=== PATIENT | female | born 1975 ===

== ENCOUNTER 2019-01-02 13:00 | Emergency (ER) | payer MEDICAID ==
--- NOTE | 2019-01-02 14:06 | RAD ---
Date of service: 01/02/2019 HISTORY: left sided cp COMPARISON: None available. TECHNIQUE: Chest one view . FINDINGS: LUNGS: No focal consolidation is seen. PLEURA: No pleural effusion is identified. CARDIOVASCULAR: Heart size is within normal limits. No atherosclerotic calcification present. OSSEOUS STRUCTURES: No acute fracture identified. VISUALIZED UPPER ABDOMEN: Unremarkable. OTHER FINDINGS: None. IMPRESSION: No acute cardiopulmonary process seen.
--- NOTE | 2019-01-02 14:17 | C.PDOC ---
History Of Present Illness 43 year old female presents to the ED for evaluation of chest pain that has been intermittent since August 2018. Patient describes her chest pain as sharp, radiating to her left arm and neck and states it is associated with palpita tions. Patient has previously been evaluated in multiple ERs and has undergone bloodwork and CXR. Patient has been told in the past that her symptoms are likely caused by muscle spasms. Patient states she recently traveled from [place], and denies recent surgeries or control use. Patient denies fever, chills, cough, shortness of breath, abdominal pain and rash. Patient denies history of DVT or PE in her family. Time Seen by Provider: 01/02/19 13:07 Chief Complaint (Nursing): Chest Pain History Per: Patient History/Exam Limitations: no limitations Onset/Duration Of Symptoms: Intermittent Episodes (months ) Current Symptoms Are (Timing): Still Present Quality: Sharp, "Pain" Additional History Per: Patient Past Medical History Reviewed: Historical Data, Nursing Documentation, Vital Signs Vital Signs: Last Vital Signs Temp 98.7 F 01/02/19 13:18 Pulse 113 H 01/02/19 13:18 Resp 18 01/02/19 13:18 BP 117/75 01/02/19 13:18 Pulse Ox 99 01/02/19 13:18 - Medical History PMH: No Chronic Diseases Denies: Chronic Kidney Disease Surgical History: No Surg Hx - [facility] Procedures EXTRACTION OF ABDOMEN SKIN, EXTERNAL APPROACH (05/31/16) INJECT/INFUSE NEC (08/18/14) TRANSFER ABDOMEN SKIN, EXTERNAL APPROACH (05/31/16) Family History: States: Unknown Family Hx - Social History Hx Alcohol Use: No Hx Substance Use: No - Immunization History Hx Tetanus Toxoid Vaccination: No Hx Influenza Vaccination: No Hx Pneumococcal Vaccination: No Review Of Systems Constitutional: Negative for: Fever, Chills Cardiovascular: Positive for: Chest Pain Respiratory: Negative for: Cough Gastrointestinal: Negative for: Abdominal Pain Musculoskeletal: Positive for: Neck Pain, Arm Pain (left) Skin: Negative for: Rash Physical Exam - Physical Exam Appears: Non-toxic, No Acute Distress Skin: Normal Color, Warm, Dry Head: Atraumatic, Normacephalic Eye(s): bilateral: Normal Inspection Oral Mucosa: Moist Neck: Supple Chest: Symmetrical, No Deformity, Tenderness (reproducible, to left chest wall) Cardiovascular: Rhythm Regular, No Murmur Respiratory: Normal Breath Sounds, No Rales, No Rhonchi, No Wheezing Extremity: Normal ROM, Capillary Refill (less than 2 seconds ) Neurological/Psych: Oriented x3, Normal Speech, Normal Cognition ED Course And Treatment - Laboratory Results Result Diagrams: 01/02/19 14:31 01/02/19 14:31 ECG: Interpreted By Me, Viewed By Me ECG Rhythm: Sinus Tachycardia Interpretation Of ECG: Sinus Tachycardia at rate 102bpm. Right axis deviation. No acute ST/T wave changes. Rate From EC O2 Sat by Pulse Oximetry: 99 (on RA) Pulse Ox Interpretation: Normal - Other Rad CXR X-Ray: Viewed By Me, Read By Radiologist Interpretation: Accession No. : [id number]. Patient Name / ID : GLEN CHILD / [id number]. Exam Date : 01/02/2019 13:46:17 ( Approved ). Study Comment : Sex / Age : F / 43Y. Creator : Randall Ponce MD. Dictator : Randall Ponce MD. Wire Setter : Production Control Manager : Randall Ponce MD. Approver2 : Report Date : 01/02/2019 14:02:47. My Comment : . Date of service: 01/02/2019. HISTORY: left sided cp. COMPARISON: None available. TECHNIQUE: Chest one view . FINDINGS: LUNGS: No focal consolidation is seen. PLEURA: No pleural effusion is identified. CARDIOVASCULAR: Heart size is within normal limits. No atherosclerotic calcification present. OSSEOUS STRUCTURES: No acute fracture identified. VISUALIZED UPPER ABDOMEN: Unremarkable. OTHER FINDINGS: None. IMPRESSION: No acute cardiopulmonary process seen. Disposition Counseled Patient/Family Regarding: Diagnosis, Need For Followup, Rx Given - Disposition Referrals: Shaik Geller MD [Staff Provider] - Disposition: HOME/ ROUTINE Disposition Time: 16:30 Condition: STABLE Additional Instructions: FOLLOW UP WITH YOUR DOCTOR IN 1-2 DAYS USE MEDICATIONS NEEDED RETURN TO ER IF SYMPTOMS WORSEN Prescriptions: Cyclobenzaprine [Flexeril] 10 mg PO BID PRN #15 tab PRN Reason: Muscle Spasm Naproxen 375 mg PO BID PRN #20 tablet PRN Reason: pain Instructions: Costochondritis (DC) Forms: [employer] (Thai) Print Language: CHINESE - Clinical Impression Clinical Impression: Left-sided chest wall pain - Scribe Statement The provider has reviewed the documentation as recorded by the Scribe (Kate Ponce) Provider Attestation: All medical record entries made by the Scribe were at my direction and personally dictated by me. I have reviewed the chart and agree that the record accurately reflects my personal performance of the history, physical exam, medical decision making, and the department course for this patient. I have also personally directed, reviewed, and agree with the discharge instructions and disposition.
[2019-01-02 14:37] LABS: BASO # 0.1 K/uL (0.0-0.2); BASO % 0.7 % (0.0-2.0); EOS # 0.1 K/uL (0.0-0.7); EOS % 0.8 % (0.0-4.0); HEMOGLOBIN 13.3 g/dL (11.0-16.0); LYMPH # 1.5 K/uL (1.0-4.3); MEAN CELL VOLUME 93.4 fL (81.0-99.0); MEAN CORPUSCULAR HEMOGLOBIN 31.5 pg (27.0-31.0); MEAN CORPUSCULAR HGB CONC 33.8 g/dL (33.0-37.0); MEAN PLATELET VOLUME 8.3 fL (7.2-11.7); MONO # 0.4 K/uL (0.0-0.8); MONO % 5.4 % (0.0-10.0); NEUT % 74.1 % (50.0-75.0); NRBC % 0.1 % (0.0-2.0); RBC 4.23 Mil/uL (3.80-5.20); WHITE BLOOD COUNT 8.1 K/uL (4.8-10.8)
[2019-01-02 14:44] LABS: INR 1.1; PROTHROMBIN TIME 12.1 SECONDS (9.7-12.2)
[2019-01-02 14:47] LABS: D DIMER < 200 ng/mlDDU (0-243)
[2019-01-02 14:52] LABS: ALB/GLOB RATIO 1.3 (1.0-2.1); ALBUMIN 4.1 g/dL (3.5-5.0); ALT/SGPT 12 U/L (9-52); AST/SGOT 18 U/L (14-36); BLOOD UREA NITROGEN 14 mg/dL (7-17); CALCIUM 9.2 mg/dl (8.6-10.4); GFR NON-AFRICAN AMERICAN > 60
[2019-01-02 15:45] LABS: HCG,QUALITATIVE URINE NEGATIVE (NEGATIVE)
[2019-01-02 15:51] LABS: SQUAMOUS EPITHIAL 6 /hpf (0-5); URINE BACTERIA RARE (<OCC); URINE BILIRUBIN NEGATIVE (NEGATIVE); URINE BLOOD 1+ (NEGATIVE); URINE CLARITY Clear (Clear); URINE COLOR Straw (YELLOW); URINE GLUCOSE (UA) NORMAL (Normal); URINE LEUKOCYTE ESTERASE TRACE Leu/uL (Negative); URINE PROTEIN NEGATIVE (NEGATIVE); URINE UROBILINOGEN NORMAL mg/dL (0.2-1.0)
[2019-01-02 16:02] VITALS: BP 101/70; PULSE 86; RESP 20; TEMP 98.8
[2019-01-02 16:18] LABS: BARBITURATES, UR NEGATIVE (NEGATIVE); BENZODIAZEPINES, UR NEGATIVE (NEGATIVE); OPIATES, UR NEGATIVE (NEGATIVE); PHENCYCLIDINE, UR NEGATIVE (NEGATIVE)
[2019-01-02 16:31] VITALS: O2SAT 99
--- NOTE | 2019-01-05 14:56 | CARD ---
APPROVED REPORT Date of service: 01/02/2019 EKG Measurement Heart [id number] [place] [id number] <Conclusion> Sinus tachycardia Rightward axis Nonspecific T wave abnormality Abnormal ECG
== END 2019-01-02 16:44 | disposition home or self-care (01) ==
LOC: C.ER 13:00
DX: R07.89 Other chest pain (principal)